=== PATIENT | female | born 1955 | race Caucasian/White ===

== ENCOUNTER 2020-12-23 23:32 | Emergency (ER) | payer MEDICAID, MEDICARE ==
[~2020-12-23] VITALS: Ht 154.9 cm; Wt 74.4 kg
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
[2020-12-24] MEDS ORDERED: IBUPROFEN 800 MG TABLET ONE (00:19)
[2020-12-24] MEDS ORDERED: METHOCARBAMOL 750 MG TABLET ONE (00:20)
[2020-12-24] MEDS ORDERED: IBUPROFEN 800 MG TABLET PO ONE (00:30)
[2020-12-24] MEDS ORDERED: METHOCARBAMOL 750 MG TABLET PO ONE (00:30)
[2020-12-24 01:03] VITALS: BP 162/84
== END 2020-12-24 01:12 | disposition home or self-care (01) ==
LOC: ED 12-24 01:07
DX: S39.012A Strain of muscle, fascia and tendon of lower back, initial encounter (principal); S29.012A Strain of muscle and tendon of back wall of thorax, initial encounter; M25.512 Pain in left shoulder; Z87.891 Personal history of nicotine dependence; W18.30XA Fall on same level, unspecified, initial encounter; Y93.89 Activity, other specified; Y92.828 Other wilderness area as the place of occurrence of the external cause; Y99.8 Other external cause status
CPT/HCPCS: 99283